=== PATIENT | female | born 1975 | race Caucasian/White ===

== ENCOUNTER 2023-08-27 19:26 | Emergency (ER) | payer OTHER ==
[~2023-08-27] VITALS: Ht 162.6 cm; Wt 61.2 kg
[~2023-08-27 19:26] MED LIST: ALBU90OI INH; AMOX500 PO; Amoxicillin500 MG PO; CLAR500 PO; CLARITIN10 MG PO; CYCL10 PO; Flagyl500 MG PO; HYDACE5 PO; HYDGUAL120 PO; HYDR1TAB94 PO; IBUHYD PO; IBUP600 PO; IBUP800 PO; LIDO2L MM; OMEPRAZOLE20 MG PO; OXYACE7.5T PO; OXYC5 PO; PENVK500 PO; PRED20 PO; PROM25 PO; TRAM50 PO
[2023-08-27 20:26] LABS: BASOPHILS ABSOLUTE AUTO 0.02 K/mm3 (0.00-0.23); BASOPHILS PERCENT AUTO 0 % (0-2); EOSINOPHILS ABSOLUTE AUTO 0.08 K/mm3 (0.00-0.68); EOSINOPHILS PERCENT AUTO 1 % (0-6); Hematocrit 38.3 % (33.0-51.0); Hemoglobin 13.2 g/dL (11.5-16.0); IMMATURE GRAN ABSOLUTE AUTO 0.02 K/mm3 (0.00-0.10); IMMATURE GRAN PERCENT AUTO 0 % (0-1); LYMPHOCYTES ABSOLUTE AUTO 0.85 K/mm3 (0.84-5.20); LYMPHOCYTES PERCENT AUTO 8 % (21-46); MONOCYTES ABSOLUTE AUTO 0.93 K/mm3 (0.16-1.47); MONOCYTES PERCENT AUTO 9 % (4-13); Mean Corpuscular HGB 29.8 pg (26.0-34.0); Mean Corpuscular HGB Conc 34.5 g/dL (31.5-36.5); Mean Corpuscular Volume 87 fL (80-100); Mean Platelet Volume 9.8 fL (9.1-12.4); NEUTROPHILS ABSOLUTE AUTO 8.73 K/mm3 (1.96-9.15); NEUTROPHILS PERCENT AUTO 82 % (41-73); Platelet Count 162 K/mm3 (150-400); RDW Coefficient Variation 12.7 % (11.7-14.2); RDW Standard Deviation 40.8 fL (35.1-46.3); Red Blood Cell Count 4.43 M/mm3 (3.80-5.20); White Blood Cell Count 10.63 K/mm3 (4.00-11.30)
[2023-08-27 20:54] LABS: Albumin, Blood 3.1 g/dL (3.4-5.0); Albumin/Globulin Ratio 0.7 (0.8-1.8); Bilirubin, Total 0.5 mg/dL (0.1-1.0); Bun/Creatinine Ratio 18.3 (12.0-20.0); Calcium, Blood 8.3 mg/dL (8.5-10.1); Creatinine, Blood 0.6 mg/dL (0.40-1.00); Globulin, Blood 4.3 g/dL (2.2-4.0); Potassium, Blood 3.6 mmol/L (3.5-5.5); Total Protein, Blood 7.4 g/dL (6.4-8.2)
[2023-08-27] MEDS ORDERED: Lactated Ringer's 1,000 ML IV ONE (20:55)
[2023-08-27] MEDS ORDERED: FentaNYL Citrate 50 MCG/ML 2 ML Injection IV ONE (20:55)
[2023-08-27] MEDS ORDERED: Potassium Chloride 20 MEQ TabCR PO ONE (22:55)
[2023-08-27] MEDS ORDERED: Trimethoprim/Sulfamethoxazole DS Tab PO ONE (23:20)
[2023-08-27 23:30] VITALS: BP 113/81
[2023-08-27] MEDS ORDERED: Ketorolac Tromethamine 30mg Vial IV ONE (23:40)
[2023-08-27] MEDS ORDERED: Promethazine HCl 25 MG Tab PO ONE (23:45)
[2023-08-28 00:03] LABS: Source, Urine Clean Catch
[2023-08-28] MEDS ORDERED: SULTRIDS PO (00:03)
[2023-08-28] MEDS ORDERED: ONDA4ODT MM (00:03)
[2023-08-28] MEDS ORDERED: RX Prepack 2 Tabs Ondansetron ODT 4MG UD ONE (00:05)
[2023-08-28 00:08] LABS: Bilirubin, Urine Neg (Neg); Blood, Urine 4+ (Neg); Glucose Qualitative, Urine Neg (Neg); Ketones, Urine 3+ (Neg); Leukocyte Esterase, Urine 2+ (Neg); Nitrite, Urine Neg (Neg); Protein, Urine 2+ (Neg); Urobilinogen, Urine 3+ (Normal)
[2023-08-28 00:14] LABS: Appearance, Urine Hazy (Clear); Color, Urine Yellow (P-Yellow)
[2023-08-28 00:16] LABS: Bacteria Few /hpf; Squamous Epithelial Cells Few /hpf (Few)
== END 2023-08-28 00:11 | disposition home or self-care (01) ==
LOC: ER 19:26
PROVIDERS: Nurse Practitioner; Physician Assistant
DX: N12 Tubulo-interstitial nephritis, not specified as acute or chronic (principal); N39.0 Urinary tract infection, site not specified; K43.9 Ventral hernia without obstruction or gangrene; F17.210 Nicotine dependence, cigarettes, uncomplicated; K21.9 Gastro-esophageal reflux disease without esophagitis; Z88.0 Allergy status to penicillin
CPT/HCPCS: 74177; 80053; 81001; 83690; 85025; 87077; 87086; 87186; 96361; 96374-59; 96375; 99284-25; A9270; J1885; J3010; J7120; Q9967

== ENCOUNTER 2024-02-29 13:07 | Emergency (ER) | payer OTHER ==
[~2024-02-29] VITALS: Ht 160 cm; Wt 66.7 kg
[~2024-02-29 13:07] MED LIST changes: +ONDA4ODT MM; +SULTRIDS PO
[2024-02-29 13:34] VITALS: BP 138/90
[2024-02-29 14:21] LABS: BASOPHILS ABSOLUTE AUTO 0.02 K/mm3 (0.00-0.23); BASOPHILS PERCENT AUTO 0 % (0-2); EOSINOPHILS ABSOLUTE AUTO 0.15 K/mm3 (0.00-0.68); EOSINOPHILS PERCENT AUTO 2 % (0-6); Hematocrit 39.9 % (33.0-51.0); Hemoglobin 13.3 g/dL (11.5-16.0); IMMATURE GRAN ABSOLUTE AUTO 0.02 K/mm3 (0.00-0.10); IMMATURE GRAN PERCENT AUTO 0 % (0-1); LYMPHOCYTES ABSOLUTE AUTO 1.63 K/mm3 (0.84-5.20); LYMPHOCYTES PERCENT AUTO 21 % (21-46); MONOCYTES PERCENT AUTO 10 % (4-13); Mean Corpuscular HGB 30.4 pg (26.0-34.0); Mean Corpuscular HGB Conc 33.3 g/dL (31.5-36.5); Mean Corpuscular Volume 91 fL (80-100); Mean Platelet Volume 9.8 fL (9.1-12.4); NEUTROPHILS ABSOLUTE AUTO 5.23 K/mm3 (1.96-9.15); NEUTROPHILS PERCENT AUTO 67 % (41-73); Platelet Count 240 K/mm3 (150-400); RDW Coefficient Variation 13.1 % (11.7-14.2); RDW Standard Deviation 43.7 fL (35.1-46.3); Red Blood Cell Count 4.37 M/mm3 (3.80-5.20); White Blood Cell Count 7.85 K/mm3 (4.00-11.30)
[2024-02-29 14:33] LABS: Albumin, Blood 3.3 g/dL (3.4-5.0); Albumin/Globulin Ratio 0.8 (0.8-1.8); Bilirubin, Total 0.3 mg/dL (0.1-1.0); Bun/Creatinine Ratio 15.4 (12.0-20.0); Calcium, Blood 9.2 mg/dL (8.5-10.1); Creatinine, Blood 0.84 mg/dL (0.40-1.00); Globulin, Blood 4.1 g/dL (2.2-4.0); Potassium, Blood 4.1 mmol/L (3.5-5.5); Total Protein, Blood 7.4 g/dL (6.4-8.2)
[2024-02-29] MEDS ORDERED: Cleocin HCl150 MG PO (16:09)
[2024-02-29] MEDS ORDERED: Clindamycin 600mg in D5W 50 ML IV ONE (16:10)
[2024-02-29] MEDS ORDERED: Ketorolac Tromethamine 30mg Vial IV ONE (16:10)
[2024-02-29] MEDS ORDERED: HYDROcodone 5-APAP 325 TAB PO ONE (16:35)
== END 2024-02-29 17:00 | disposition home or self-care (01) ==
LOC: ER 13:07
PROVIDERS: Student in an Organized Health Care Education/Training Program
DX: K04.7 Periapical abscess without sinus (principal); K21.9 Gastro-esophageal reflux disease without esophagitis; F17.210 Nicotine dependence, cigarettes, uncomplicated; Z79.899 Other long term (current) drug therapy; Z88.0 Allergy status to penicillin
CPT/HCPCS: 70487; 80053; 85025; 96365; 96375; 99284-25; A9270; J1885; Q9967

== ENCOUNTER 2024-10-26 10:24 | Emergency (ER) | payer OTHER ==
[~2024-10-26] VITALS: Ht 167.6 cm; Wt 63.5 kg
[~2024-10-26 10:24] MED LIST changes: +Cleocin HCl150 MG PO
[2024-10-26] MEDS ORDERED: Ketorolac Tromethamine 15mg Vial IM ONE (10:55)
[2024-10-26 11:11] LABS: Source, Urine Clean Catch
[2024-10-26 11:15] LABS: Bilirubin, Urine Neg (Neg); Color, Urine Yellow (P-Yellow); Glucose Qualitative, Urine Neg (Neg); Ketones, Urine Neg (Neg); Leukocyte Esterase, Urine 1+ (Neg); Protein, Urine 2+ (Neg); Specific Gravity, Urine 1.025 (1.003-1.022); Urobilinogen, Urine 1+ (Normal)
[2024-10-26 11:23] LABS: Red Blood Cells, Urine Not Seen /hpf (0-2)
[2024-10-26] MEDS ORDERED: Dexamethasone Sod Phos 10 MG/ML 1ML VIAL PO ONE (12:40)
[2024-10-26] MEDS ORDERED: Lidocaine 4% 1 Patch TOP ONE (12:45)
[2024-10-26 13:00] VITALS: BP 147/81
[2024-10-26] MEDS ORDERED: TIZANIDINE HCL2 M1 PO (13:44)
== END 2024-10-26 13:50 | disposition home or self-care (01) ==
LOC: ER 10:24
PROVIDERS: Student in an Organized Health Care Education/Training Program
DX: S39.012A Strain of muscle, fascia and tendon of lower back, initial encounter (principal); X58.XXXA Exposure to other specified factors, initial encounter; J45.909 Unspecified asthma, uncomplicated; K21.9 Gastro-esophageal reflux disease without esophagitis; M54.17 Radiculopathy, lumbosacral region; R82.71 Bacteriuria; F17.210 Nicotine dependence, cigarettes, uncomplicated; Z88.0 Allergy status to penicillin; Z79.899 Other long term (current) drug therapy
CPT/HCPCS: 76770; 81001; 87086; 96372; 99284-25; A9270; J1100; J1885

== ENCOUNTER 2025-01-02 22:53 | Emergency (ER) | payer OTHER ==
[~2025-01-02] VITALS: Ht 162.6 cm; Wt 62.6 kg
[~2025-01-02 22:53] MED LIST changes: +TIZANIDINE HCL2 M1 PO
[2025-01-03 00:26] VITALS: BP 127/97
== END 2025-01-03 00:36 | disposition home or self-care (01) ==
LOC: ER 22:53
DX: T14.8XXA Other injury of unspecified body region, initial encounter (principal); F17.210 Nicotine dependence, cigarettes, uncomplicated; W46.0XXA Contact with hypodermic needle, initial encounter; Z88.0 Allergy status to penicillin
CPT/HCPCS: 99282